=== PATIENT | female | born 1955 | race Hispanic/Latino ===

== ENCOUNTER 2016-10-02 16:13 | Outpatient (CLI) | payer OTHER ==
--- NOTE | 2016-10-03 12:54 | Mammography Report ---
BILATERAL DIGITAL SCREENING MAMMOGRAM with CAD : 10/02/16 16:13:00 CLINICAL: Routine screening. COMPARISON:11/06/14 FINDINGS: The breasts are heterogeneously dense, which may obscure small masses.Scattered bilateral benign calcifications. No mass, architectural distortion or suspicious calcifications. IMPRESSION: No mammographic evidence of malignancy. BI-RADS CATEGORY: 2 -- Benign RECOMMENDATION: Routine mammographic screening in one year. COMMENT: Patient follow-up letters are generated by our [employer] application.
== END 2016-10-02 16:14 | disposition home or self-care (01) ==
LOC: SPVWC 16:13
DX: Z12.31 Encounter for screening mammogram for malignant neoplasm of breast (principal)
CPT/HCPCS: 77067; G0202

== ENCOUNTER 2017-02-04 10:30 | Outpatient (CLI) | payer OTHER ==
--- NOTE | 2017-02-04 11:36 | Ultrasound Report ---
Bilateral whole breast ultrasound including all 4 quadrants and subareolar regions. History: Recent onset of bilateral mastodynia, worse on the left. The patient's prior mammogram performed on October 02, 2016 was reviewed. Findings: At the 12:00 position of the left breast, there is a subareolar cyst measuring 1.1 x 0.5 x 0.9 cm. This is somewhat lobulated but demonstrates no acoustic shadowing or other suspicious features. A mildly dilated ductal structure is seen at the 2:00 position. No focal findings are seen in the right breast. Impression: Small subareolar cyst in the left breast at 12:00. No suspicious imaging findings. BI-RADS code: 2. Recommendation: Annual screening in September of 2017.
== END 2017-02-04 10:31 | disposition home or self-care (01) ==
LOC: SPVWC 10:30
DX: D47.09 Other mast cell neoplasms of uncertain behavior (principal); N60.02 Solitary cyst of left breast